=== PATIENT | male | born 1950 | race Caucasian/White ===

== ENCOUNTER → 2016-08-03 | Outpatient (CLI) | payer MEDICARE ==
[~2016-08-03] MED LIST: BUDE10.22 INH; CYCL5TAB PO; ERGOCALCIFEROL PO; HYDR-3307 PO; INDOCIN PO; MORP30TA PO; OXYC10TA6 PO; TIOT18CA INH
[2016-08-03 14:39] LABS: HEMOGLOBIN 16.4 g/dL (13.7-18.0)
[2016-08-03 14:51] LABS: ASPARTATE AMINO TRANSFERASE 24 U/L (15-37); BLOOD UREA NITROGEN 20 mg/dL (7-18)
== END | disposition home or self-care (01) ==
LOC: STAR 13:06
PROVIDERS: ATTEND Orthopaedic Surgery Orthopaedic Surgery of the Spine
DX: Z01.811 Encounter for preprocedural respiratory examination (principal); M47.894 Other spondylosis, thoracic region; M25.551 Pain in right hip; R79.1 Abnormal coagulation profile
CPT/HCPCS: 36415; 71020; 80053; 81003; 85025; 85610; 85651; 85730; 93005

== ENCOUNTER 2016-08-11 06:27 | Inpatient (IN) | payer MEDICARE ==
[2016-08-03 14:58] VITALS: BP 166/89
[~2016-08-11] VITALS: Ht 193 cm; Wt 118.2 kg
[2016-08-11] MEDS ORDERED: BUPIVACAINE/PF-EPI 0.5% 1:200K ONE (07:05)
[2016-08-11] MEDS ORDERED: TRANEXAMIC ACID 100 MG/ML, 10ML ONE (07:05)
[2016-08-11] MEDS ORDERED: THROMBIN 20,000 UNIT VIAL TP ONE (07:05)
[2016-08-11] MEDS ORDERED: LACTATED RINGERS 1,000 ML IV SCH (07:18)
[2016-08-11] MEDS ORDERED: FENTANYL PF 250 MCG/5ML ONE (07:38)
[2016-08-11] MEDS ORDERED: MIDAZOLAM 1 MG/ML, 5ML ONE (07:38)
[2016-08-11] MEDS ORDERED: VANCOMYCIN PER PHARMACY MC PRN (08:00)
[2016-08-11] MEDS ORDERED: VANCOMYCIN 2,000 MG in SODIUM CHLORIDE 0.9% 500 ML IV ONE (08:00)
[2016-08-11] MEDS ORDERED: CEFAZOLIN 1,000 MG ONE (08:07)
[2016-08-11] MEDS ORDERED: ROCURONIUM 10 MG/ML ONE (08:07)
[2016-08-11] MEDS ORDERED: PROPOFOL 10 MG/ML, 20ML ONE (08:07)
[2016-08-11] MEDS ORDERED: ONDANSETRON 2MG/ML, 2ML ONE (08:07)
[2016-08-11] MEDS ORDERED: DEXAMETHASONE 4 MG/ML, 5ML ONE (08:07)
[2016-08-11] MEDS ORDERED: OXYcodone 5 MG/5 ML ORAL.SOL UDC PO PRN (08:30)
[2016-08-11] MEDS ORDERED: ACETAMINOPHEN 325 MG TABLET PO PRN (08:30)
[2016-08-11] MEDS ORDERED: ONDANSETRON 2MG/ML, 2ML IVPush PRN (08:30)
[2016-08-11] MEDS ORDERED: FENTANYL PF 100 MCG/2ML IV PRN (08:30)
[2016-08-11] MEDS ORDERED: LABETALOL 5MG/ML, 20ML IV PRN (08:30)
[2016-08-11] MEDS ORDERED: MEPERIDINE/PF 25MG/0.5ML IVPush PRN (08:30)
[2016-08-11] MEDS ORDERED: VANCOMYCIN 1,000 MG ONE (09:31)
[2016-08-11] MEDS ORDERED: HYDROmorphone 1 MG/ML, 1ML ONE (09:34)
[2016-08-11] MEDS ORDERED: ACETAMINOPHEN 650 MG/20.3 ML UDC ONE (10:23)
[2016-08-11] MEDS ORDERED: HYDROmorphone 2 MG/ML, 1ML ONE (10:23)
[2016-08-11] MEDS ORDERED: FENTANYL PF 100 MCG/2ML ONE (10:23)
[2016-08-11] MEDS ORDERED: OXYcodone 5 MG/5 ML ORAL.SOL UDC ONE (10:23)
[2016-08-11] MEDS ORDERED: hydrALAzine 20 MG/ML, 1ML ONE (10:32)
[2016-08-11] MEDS: hydrALAzine 20 MG/ML, 1ML IV PRN ×2 (10:33→11:24)
[2016-08-11] MEDS: HYDROmorphone 1 MG/ML, 1ML IV PRN ×3 (10:41→11:33)
[2016-08-11 12:45] VITALS: BP 121/91
[2016-08-11] MEDS ORDERED: MAGNESIUM HYDROXIDE 8%, 30ML UDC PO PRN (13:30)
[2016-08-11] MEDS ORDERED: BISACODYL 10 MG SUPP PR PRN (13:30)
[2016-08-11] MEDS ORDERED: morphine SULFATE 10 MG/ML, 1ML IV PRN (13:30)
[2016-08-11] MEDS ORDERED: ALUMINUM/MAG/SIMETHICONE 30 ML UDC PO PRN (13:30)
[2016-08-11] MEDS: OXYcodone IR 5MG TABLET PO PRN ×3 (13:30→23:14)
[2016-08-11] MEDS ORDERED: ONDANSETRON ODT 4 MG PO PRN (13:30)
[2016-08-11] MEDS ORDERED: DIPHENHYDRAMINE 25 MG CAPSULE PO PRN (13:30)
[2016-08-11] MEDS ORDERED: ZOLPIDEM 5MG TABLET PO PRN (13:30)
[2016-08-11] MEDS ORDERED: TRANEXAMIC ACID 1,500 MG in SODIUM CHLORIDE 0.9% 100 ML IVPB ONE (13:30)
[2016-08-11] MEDS ORDERED: SCOPOLAMINE PATCH, 1.5MG PATCH.TD72 TD PRN (13:30)
[2016-08-11] MEDS ORDERED: PROMETHAZINE 25 MG SUPP PR PRN (13:30)
[2016-08-11] MEDS ORDERED: PROMETHAZINE 25 MG/ML, 1ML IM PRN (13:30)
[2016-08-11] MEDS ORDERED: SENNA/DOCUSATE TABLET PO PRN (14:00)
[2016-08-11] MEDS ORDERED: CEFAZOLIN PMX 2GM/100ML 100 ML IVPB SCH (14:00)
[2016-08-11] MEDS ORDERED: CYCLOBENZAPRINE 10 MG TABLET PO PRN (14:00)
[2016-08-11] MEDS ORDERED: KETOROLAC 30 MG/1 ML IV PRN (14:00)
[2016-08-11] MEDS ORDERED: DEXAMETHASONE 8 MG in SODIUM CHLORIDE 0.9% 50 ML IV PRN (14:00)
[2016-08-11] MEDS: POTASSIUM CHLORIDE 20 MEQ in D5%-0.45% NACL 1,000 ML IV SCH (14:51)
[2016-08-11] MEDS: IPRATROPIUM 0.5 MG/2.5 ML INHA NPPB SCH ×2 (14:51→20:00)
[2016-08-11] MEDS: CEFAZOLIN PMX 2GM/50ML 50 ML IVPB SCH (16:18)
[2016-08-11] MEDS: ASPIRIN 325 MG TABLET EC PO SCH (18:01)
[2016-08-11] MEDS: DOCUSATE 100 MG CAPSULE PO SCH (20:53)
[2016-08-11] MEDS ORDERED: INDOMETHACIN 50 MG CAPSULE PO PRN (21:00)
[2016-08-11 21:05] VITALS: BP 127/77
[2016-08-12 00:11] VITALS: BP 133/80
[2016-08-12] MEDS: CEFAZOLIN PMX 2GM/50ML 50 ML IVPB SCH (00:14)
[2016-08-12] MEDS: IPRATROPIUM 0.5 MG/2.5 ML INHA NPPB SCH ×4 (02:00→20:00)
[2016-08-12] MEDS: DIAZEPAM 5 MG TABLET PO PRN ×3 (02:02→19:47)
[2016-08-12] MEDS: OXYcodone IR 5MG TABLET PO PRN ×5 (03:00→21:32)
[2016-08-12] MEDS: POTASSIUM CHLORIDE 20 MEQ in D5%-0.45% NACL 1,000 ML IV SCH ×3 (03:15→18:19)
[2016-08-12 04:00] VITALS: BP 127/72
[2016-08-12] MEDS: ASPIRIN 325 MG TABLET EC PO SCH ×2 (05:59→18:19)
[2016-08-12 06:45] VITALS: BP 132/79
[2016-08-12] MEDS: FLUTICASONE/VILANTEROL 100-25MCG/INH INH SCH (08:45)
[2016-08-12] MEDS: DOCUSATE 100 MG CAPSULE PO SCH ×2 (08:45→19:47)
[2016-08-12 13:00] VITALS: BP 110/81
[2016-08-12 19:08] VITALS: BP 116/65
[2016-08-13 00:40] VITALS: BP 107/75
[2016-08-13] MEDS: IPRATROPIUM 0.5 MG/2.5 ML INHA NPPB SCH ×3 (02:00→14:00)
[2016-08-13] MEDS: POTASSIUM CHLORIDE 20 MEQ in D5%-0.45% NACL 1,000 ML IV SCH ×2 (03:30→11:20)
[2016-08-13] MEDS: ASPIRIN 325 MG TABLET EC PO SCH (04:45)
[2016-08-13] MEDS: OXYcodone IR 5MG TABLET PO PRN ×3 (04:45→12:41)
[2016-08-13 08:24] VITALS: BP 122/82
[2016-08-13] MEDS: FLUTICASONE/VILANTEROL 100-25MCG/INH INH SCH (09:00)
[2016-08-13] MEDS: DOCUSATE 100 MG CAPSULE PO SCH (10:46)
[2016-08-13] MEDS ORDERED: MORP30TA81 PO (11:29)
[2016-08-13] MEDS ORDERED: DIAZ5TAB PO (11:30)
[2016-08-13] MEDS ORDERED: CEPH-368 PO (11:31)
[2016-08-13] MEDS ORDERED: OXYC20TA2 PO (11:31)
[2016-08-13] MEDS ORDERED: ASPI-650 PO (11:32)
[2016-08-13 14:05] VITALS: BP 131/74
== END 2016-08-13 15:15 | disposition home or self-care (01) | DRG 470 ==
LOC: ORIP 06:27 → 4NOR 12:38
PROVIDERS: ADMIT Orthopaedic Surgery Orthopaedic Surgery of the Spine; ATTEND Orthopaedic Surgery Orthopaedic Surgery of the Spine
PROC: 0SR902Z Replacement of Right Hip Joint with Metal on Polyethylene Synthetic Substitute, Open Approach (ICD-10-PCS; principal; 2016-08-11 08:00)
DX: M16.11 Unilateral primary osteoarthritis, right hip (principal); M87.88 Other osteonecrosis, other site; M10.9 Gout, unspecified; Z98.1 Arthrodesis status
CPT/HCPCS: 36415; 72170; 85014; 85018; 86850; 86900; 87081; J0690; J1100; J1170; J2250; J2405; J2704; J3010; J3370; J3480; C1776; J0360; J2270; J7040; J7120

== ENCOUNTER 2016-09-20 10:20 | Inpatient (IN) | payer MEDICARE ==
[~2016-09-20] VITALS: Ht 190.5 cm; Wt 106.0 kg
[~2016-09-20 10:20] MED LIST changes: +ASPI-650 PO; +CEPH-368 PO; +DIAZ5TAB PO; +MORP30TA81 PO; +OXYC20TA2 PO
[2016-09-20] MEDS ORDERED: SODIUM CHLORIDE FLUSH 10ML SYR IVF ONE (11:00)
[2016-09-20] MEDS ORDERED: SODIUM CHLORIDE 0.9% 1,000ML IVBOLUS ONE ×2 (11:00→14:30)
[2016-09-20 11:46] LABS: BLOOD UREA NITROGEN 11 mg/dL (7-18)
[2016-09-20 11:52] LABS: ASPARTATE AMINO TRANSFERASE 18 U/L (15-37)
[2016-09-20 11:55] LABS: IS PT STATUS REG ER OR PRE ER? YES
[2016-09-20] MEDS ORDERED: LUBI24CA5 PO (12:18)
[2016-09-20] MEDS ORDERED: LEVO15TA7 PO (12:18)
[2016-09-20] MEDS ORDERED: CHOL100015 PO (12:18)
[2016-09-20] MEDS ORDERED: HYDR-3240 PO (12:25)
[2016-09-20] MEDS ORDERED: MORP60TA22 PO ×2 (12:25)
[2016-09-20] MEDS ORDERED: CYCL5TAB PO (12:25)
[2016-09-20] MEDS ORDERED: ALLO100T30 PO (12:25)
[2016-09-20] MEDS ORDERED: OXYC20TA2 PO (12:25)
[2016-09-20] MEDS ORDERED: AMOX-291 PO (12:25)
[2016-09-20] MEDS ORDERED: ASPI-650 PO (12:26)
[2016-09-20 12:31] LABS: DIFF TOTAL CELLS COUNTED 100 CELL DIFF
[2016-09-20 12:33] LABS: VERIFY COUNTS? YES
[2016-09-20] MEDS ORDERED: CEFTRIAXONE PMX 1GM/50ML 50 ML IV ONE (13:00)
[2016-09-20] MEDS ORDERED: CEFTRIAXONE PMX 1GM/50ML 50 ML ONE (13:20)
[2016-09-20] MEDS ORDERED: POTASSIUM CHLORIDE 20 MEQ TAB.ER.PRT PO ONE (14:00)
[2016-09-20] MEDS ORDERED: VANCOMYCIN PER PHARMACY MC PRN (15:30)
[2016-09-20] MEDS ORDERED: LORazepam 2 MG/ML, 1ML IV PRN ×5 (15:30)
[2016-09-20] MEDS ORDERED: LORazepam 0.5MG TABLET PO PRN (15:30)
[2016-09-20] MEDS ORDERED: LORazepam 1MG TABLET PO PRN ×4 (15:30)
[2016-09-20] MEDS ORDERED: morphine SULFATE 10 MG/ML, 1ML IVPush PRN (16:00)
[2016-09-20] MEDS ORDERED: ONDANSETRON ODT 4 MG PO PRN (16:00)
[2016-09-20] MEDS ORDERED: LUBIPROSTONE 24 MCG CAPSULE PO PRN (16:00)
[2016-09-20] MEDS ORDERED: BISACODYL 10 MG SUPP PR PRN (16:00)
[2016-09-20] MEDS ORDERED: POLYETHYLENE GLYCOL 17 GM PACKET PO PRN (16:00)
[2016-09-20] MEDS ORDERED: ONDANSETRON 2MG/ML, 2ML IVPush PRN (16:00)
[2016-09-20] MEDS ORDERED: MAGNESIUM SULFATE PMX 4GM/100M 100 ML IV ONE (17:00)
[2016-09-20 18:37] LABS: DAU SCREEN DISCLAIMER
[2016-09-20] MEDS: AMPICILLIN/SULBACTAM 3 GM in SODIUM CHLORIDE 0.9% 100 ML IV SCH (18:51)
[2016-09-20] MEDS: SODIUM CHLORIDE 0.9% 1,000 ML IV SCH (18:51)
[2016-09-20 19:17] VITALS: BP 143/84
[2016-09-20] MEDS ORDERED: PHARMACOKINETIC MONITORING MC PRN (19:30)
[2016-09-20] MEDS ORDERED: PHARMACOKINETIC CONSULTATION MC ONE (19:30)
[2016-09-20] MEDS: HYDROcodone/APAP 5/325 TABLET PO PRN (19:55)
[2016-09-20] MEDS: ENOXAPARIN 40 MG/0.4 ML SQ SCH (19:55)
[2016-09-20] MEDS ORDERED: POTASSIUM PHOSPHATE 44 MEQ in SODIUM CHLORIDE 0.9% 500 ML IV ONE (20:00)
[2016-09-20] MEDS: VANCOMYCIN 2,000 MG in SODIUM CHLORIDE 0.9% 500 ML IV SCH (20:35)
[2016-09-20] MEDS ORDERED: OMNIPAQUE 350 MG/ML, 75ML BOTTLE ONE (22:19)
[2016-09-21 00:21] VITALS: BP 122/75
[2016-09-21] MEDS: AMPICILLIN/SULBACTAM 3 GM in SODIUM CHLORIDE 0.9% 100 ML IV SCH ×4 (01:15→22:04)
[2016-09-21] MEDS: SODIUM CHLORIDE 0.9% 1,000 ML IV SCH ×2 (05:47→16:00)
[2016-09-21 06:36] VITALS: BP 147/91
[2016-09-21 06:40] LABS: BLOOD UREA NITROGEN 9 mg/dL (7-18)
[2016-09-21 06:45] LABS: ASPARTATE AMINO TRANSFERASE 14 U/L (15-37)
[2016-09-21] MEDS: ALLOPURINOL 100 MG TABLET PO SCH (08:32)
[2016-09-21] MEDS: MULTIVIT.W/IRON, MINERALS ORAL SOL PO SCH (08:32)
[2016-09-21] MEDS: FOLIC ACID 1 MG TABLET PO SCH (08:32)
[2016-09-21] MEDS: THIAMINE 100MG TABLET PO SCH (08:33)
[2016-09-21] MEDS: ASPIRIN 81 MG TABLET EC PO SCH (08:33)
[2016-09-21] MEDS: SENNA/DOCUSATE TABLET PO SCH (08:36)
[2016-09-21] MEDS: HYDROcodone/APAP 5/325 TABLET PO PRN ×3 (08:41→22:05)
[2016-09-21] MEDS ORDERED: LEVOMEFOLATE CALCIUM 15 MG PO SCH (09:00)
[2016-09-21] MEDS ORDERED: DIAZEPAM 5 MG TABLET PO PRN (13:00)
[2016-09-21 13:09] VITALS: BP 134/78
[2016-09-21] MEDS: LACTULOSE 20 GM/30 ML UDC PO SCH ×2 (13:50→22:04)
[2016-09-21] MEDS: POTASSIUM CHLORIDE 20 MEQ TAB.ER.PRT PO SCH (16:38)
[2016-09-21] MEDS: VANCOMYCIN 2,000 MG in SODIUM CHLORIDE 0.9% 500 ML IV SCH (16:39)
[2016-09-21 20:00] VITALS: BP 154/85
[2016-09-21] MEDS: ENOXAPARIN 40 MG/0.4 ML SQ SCH (22:04)
[2016-09-22 01:42] VITALS: BP 158/99
[2016-09-22] MEDS: AMPICILLIN/SULBACTAM 3 GM in SODIUM CHLORIDE 0.9% 100 ML IV SCH ×2 (04:26→12:03)
[2016-09-22 05:59] LABS: BLOOD UREA NITROGEN 9 mg/dL (7-18)
[2016-09-22] MEDS: SODIUM CHLORIDE 0.9% 1,000 ML IV SCH (08:00)
[2016-09-22] MEDS: SENNA/DOCUSATE TABLET PO SCH (09:00)
[2016-09-22] MEDS: LACTULOSE 20 GM/30 ML UDC PO SCH (09:00)
[2016-09-22] MEDS: POTASSIUM CHLORIDE 20 MEQ TAB.ER.PRT PO SCH (09:20)
[2016-09-22] MEDS: MULTIVIT.W/IRON, MINERALS ORAL SOL PO SCH (09:20)
[2016-09-22] MEDS: VANCOMYCIN 2,000 MG in SODIUM CHLORIDE 0.9% 500 ML IV SCH (09:20)
[2016-09-22 09:21] VITALS: BP 167/95
[2016-09-22] MEDS: ASPIRIN 81 MG TABLET EC PO SCH (09:21)
[2016-09-22] MEDS: THIAMINE 100MG TABLET PO SCH (09:21)
[2016-09-22] MEDS: ALLOPURINOL 100 MG TABLET PO SCH (09:21)
[2016-09-22] MEDS: FOLIC ACID 1 MG TABLET PO SCH (09:21)
[2016-09-22] MEDS: HYDROcodone/APAP 5/325 TABLET PO PRN (09:22)
[2016-09-22] MEDS ORDERED: MULT9LIQ3 PO (13:25)
[2016-09-22] MEDS ORDERED: LACT20SO13 PO (13:25)
[2016-09-22] MEDS ORDERED: SULF1TAB24 PO (13:25)
[2016-09-22] MEDS ORDERED: AMOX1TAB64 PO (13:25)
[2016-09-22] MEDS ORDERED: FOLI-17 PO (13:25)
[2016-09-22] MEDS ORDERED: THIA100T6 PO (13:25)
[2016-09-23] MEDS ORDERED: ERGOCALCIFEROL 50,000 UNIT CAPSULE PO SCH (09:00)
== END 2016-09-22 16:55 | disposition home or self-care (01) | DRG 871 ==
LOC: ED 13:57 → EDIP 15:37 → 4WST 18:00
DX: A41.9 Sepsis, unspecified organism (principal); G92 Toxic encephalopathy; E87.1 Hypo-osmolality and hyponatremia; J98.11 Atelectasis; F11.23 Opioid dependence with withdrawal; R65.20 Severe sepsis without septic shock; Z66 Do not resuscitate; E83.39 Other disorders of phosphorus metabolism; E83.42 Hypomagnesemia; E87.6 Hypokalemia; F10.10 Alcohol abuse, uncomplicated; F12.90 Cannabis use, unspecified, uncomplicated; G47.00 Insomnia, unspecified; J44.9 Chronic obstructive pulmonary disease, unspecified; K04.7 Periapical abscess without sinus; R73.9 Hyperglycemia, unspecified; K59.09 Other constipation; K70.30 Alcoholic cirrhosis of liver without ascites; M10.9 Gout, unspecified; N39.41 Urge incontinence; M17.12 Unilateral primary osteoarthritis, left knee; Z96.641 Presence of right artificial hip joint; Z82.49 Family history of ischemic heart disease and other diseases of the circulatory system; Z86.73 Personal history of transient ischemic attack (TIA), and cerebral infarction without residual deficits; Z87.891 Personal history of nicotine dependence; Z71.51 Drug abuse counseling and surveillance of drug abuser; T40.2X5A Adverse effect of other opioids, initial encounter
CPT/HCPCS: 36415; 70450; 70487; 70551; 71010; 74177; 80048; 80053; 80061; 80307; 81003; 82140; 82607; 82746; 83605; 83735; 84100; 84145; 84443; 84484; 85025; 85610; 85651; 85730; 86140; 87040; 93005; 96361; 96365; J0295; J0696; J1650; J3370; Q9967; J3475; J7030; J7040